=== PATIENT | male | born 1945 | race Asian ===

== ENCOUNTER 2018-01-28 07:09 | Day surgery (SDC) | payer OTHER ==
[2018-01-28] MEDS ORDERED: LIDOCAINE 4% SOLUTION 50 ML BTL (08:40)
[2018-01-28] MEDS ORDERED: FENTAnyl 50 MCG/ML VIAL (09:26)
[2018-01-28] MEDS ORDERED: MIDAZOLAM 1 MG/ML 2 ML INJ ×2 (09:26)
== END 2018-01-28 12:09 | disposition home or self-care (01) ==
LOC: GIL 07:09
DX: Z12.11 Encounter for screening for malignant neoplasm of colon (principal); K29.30 Chronic superficial gastritis without bleeding; K57.30 Diverticulosis of large intestine without perforation or abscess without bleeding; K64.4 Residual hemorrhoidal skin tags; K64.8 Other hemorrhoids; I10 Essential (primary) hypertension
CPT/HCPCS: 43239; 88305; 88312

== ENCOUNTER 2018-03-09 06:12 | Day surgery (SDC) | payer OTHER ==
[2018-03-09] MEDS ORDERED: HEPARIN 1000 UNITS/NS (A-LINE) 1,000 ML (08:02)
[2018-03-09] MEDS ORDERED: LIDOCAINE 2% (MDV) 20 ML INJ (08:02)
[2018-03-09] MEDS ORDERED: FENTAnyl 50 MCG/ML VIAL (08:02)
[2018-03-09] MEDS ORDERED: MIDAZOLAM 1 MG/ML 2 ML INJ (08:02)
[2018-03-09] MEDS ORDERED: IODIXANOL LOCM 100 ML BTL (08:02)
== END 2018-03-09 12:51 | disposition home or self-care (01) ==
LOC: SDS 06:12
DX: I73.9 Peripheral vascular disease, unspecified (principal); R94.39 Abnormal result of other cardiovascular function study
CPT/HCPCS: 36200; 75630; 75710